=== PATIENT | male | born 1980 | race Two or more races ===

== ENCOUNTER 2016-06-09 00:13 | Emergency (ER) | payer SELFPAY ==
[2016-06-09 00:24] VITALS: TEMP 96.5; BMI 30.4
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
[2016-06-09 01:01] LABS: MPV 8.6 fL (7.4-10.4)
[2016-06-09 01:09] LABS: BLOOD UREA NITROGEN 13 MG/DL (9-20); CALCIUM 8.9 MG/DL (8.4-10.2); CALCULATED OSMOLALITY 271 MOs/Kg (270-290); CHLORIDE 104 mEq/L (98-107); GLUCOSE 91 MG/DL (70-99); SODIUM LEVEL 141 mEq/L (137-146); TOTAL PROTEIN 7.8 G/DL (6.3-8.2)
[2016-06-09 01:19] LABS: ALL NEG? NO
[2016-06-09 01:23] LABS: LEUKOCYTES/URINE NEG (NEGATIVE); NITRITE/URINE NEG (NEGATIVE); RBC/URINE 0-2 (0-2); URINE OCCULT BLOOD 1+ (NEG/TRACE); WBC/URINE 0-2 (0-2)
[2016-06-09 01:26] LABS: ETOH-MGDL < 10 mg/dL
[2016-06-09 01:27] LABS: MDMA* NEG (NEGATIVE); METHAMPHETAMINES NEG (NEGATIVE)
[2016-06-09 01:28] LABS: OXYCODONE NEG (NEGATIVE)
[2016-06-09 02:46] LABS: SEG NEUTROPHIL 86 % (45-76)
[2016-06-09 05:12] VITALS: BP 110/60; PULSE 72
== END 2016-06-09 05:11 | disposition home or self-care (01) ==
LOC: ED 00:13
DX: F19.10 Other psychoactive substance abuse, uncomplicated (principal); S60.512A Abrasion of left hand, initial encounter; S60.511A Abrasion of right hand, initial encounter; X58.XXXA Exposure to other specified factors, initial encounter; F17.200 Nicotine dependence, unspecified, uncomplicated
CPT/HCPCS: 36415; 80053; 80307; 81001; 85007; 85027; 99284